=== PATIENT | female | born 1940 | race Hispanic/Latino ===

== ENCOUNTER 2022-05-30 19:49 | Inpatient (IN) | payer OTHER, MEDICARE ==
[~2022-05-30] VITALS: Ht 152.4 cm; Wt 51.7 kg
[2022-05-30] MEDS ORDERED: 0.9%NACL 1000ML 1,000 ML IV ONE (20:30)
[2022-05-30 20:31] LABS: BILIRUBIN,URINE NEGATIVE (NEGATIVE); GLUCOSE, URINE (UA) >=1000 mg/dL (NEGATIVE); KETONES,URINE NEGATIVE (NEGATIVE); LEUKOCYTE ESTERASE ,URINE SMALL (NEGATIVE); NITRATE,URINE NEGATIVE (NEGATIVE); OCCULT BLOOD,URINE NEGATIVE (NEGATIVE); PROTEIN,URINE NEGATIVE (NEGATIVE); UROBILINOGEN,URINE 0.2 mg/dL (0.2-1.0)
[2022-05-30 20:37] LABS: HEMATOCRIT 37.5 % (36-48); LYMPHOCYTES % (AUTO) 11.9 % (21.0-51.0); MEAN CORPUSCULAR HEMOGLOBIN 32.3 pg (27.0-33.0); MEAN CORPUSCULAR HGB CONC 34.7 g/dL (32.0-36.0); MEAN CORPUSCULAR VOLUME 93.3 fL (79-99); MONOCYTES % (AUTO) 7.1 % (3.0-13.0); NEUTROPHILS % (AUTO) 80.3 % (40.0-77.0); PLATELET COUNT (AUTO) 181 K/uL (130-400); RED BLOOD CELL COUNT(AUTO) 4.02 MIL/uL (4.00-5.50); RED CELL DISTRIBUTION WIDTH 12.6 % (11.0-15.5); WHITE BLOOD COUNT (AUTO) 13.3 K/uL (4.8-10.8)
[2022-05-30 20:39] LABS: APPEARANCE,URINE CLEAR (CLEAR)
[2022-05-30 20:40] LABS: COLOR,URINE YELLOW (YELLOW)
[2022-05-30 20:42] LABS: ABG BASE EXCESS -4.7 mmol/L (-2.0-3.0); ABG HCO3 19.5 mmol/L (21.0-28.0); ABG OXYGEN SATURATION 94.2 % (95.0-99.0); ABG PCO2 33 mmHg (32-45)
[2022-05-30 20:44] LABS: CREATININE 1.8 mg/dL (0.5-1.5); POTASSIUM 4.8 mmol/L (3.5-5.1)
[2022-05-30 20:49] LABS: ALBUMIN 3.1 g/dL (3.5-5.0); TOTAL PROTEIN, SERUM 6.4 g/dL (6.0-8.3)
[2022-05-30 20:53] LABS: BACTERIA,URINE Few /HPF (None Seen); RBC,URINE None Seen /HPF (0-1); SQUAMOUS EPITHELIAL CELL,UR None Seen /HPF (0-2)
[2022-05-30] MEDS ORDERED: ACETAMINOPHEN 325 MG TAB PO PRN (21:00)
[2022-05-30] MEDS: INSULIN HUMULIN R 100 UNIT/ML 3ML SQ SCH (21:00)
[2022-05-30] MEDS ORDERED: ONDANSETRON 4MG INJ IVP PRN (21:00)
[2022-05-30] MEDS: 0.9%NACL 1000ML 1,000 ML IV SCH (21:00)
[2022-05-31] VITALS (7 sets, daily range): BP systolic 99–126; BP diastolic 46–60
[2022-05-31] MEDS ORDERED: TERB250T89 PO (02:27)
[2022-05-31] MEDS ORDERED: DAPA1TAB3 PO (02:27)
[2022-05-31] MEDS ORDERED: LISI40TA9 PO (02:27)
[2022-05-31] MEDS ORDERED: METO-391 PO (02:27)
[2022-05-31] MEDS ORDERED: ESCI-8 PO (02:27)
[2022-05-31] MEDS ORDERED: vit b12 PO (02:29)
[2022-05-31] MEDS ORDERED: SEMA3TAB4 PO (02:30)
[2022-05-31] MEDS: INSULIN HUMULIN R 100 UNIT/ML 3ML SQ SCH ×4 (05:45→20:50)
[2022-05-31 06:59] LABS: BASOPHILS % (AUTO) 0.1 % (0.0-5.0); HEMATOCRIT 33.7 % (36-48); LYMPHOCYTES % (AUTO) 17.1 % (21.0-51.0); MEAN CORPUSCULAR HEMOGLOBIN 32.5 pg (27.0-33.0); MEAN CORPUSCULAR HGB CONC 33.8 g/dL (32.0-36.0); MONOCYTES % (AUTO) 7.5 % (3.0-13.0); NEUTROPHILS % (AUTO) 74.7 % (40.0-77.0); PLATELET COUNT (AUTO) 149 K/uL (130-400); RED BLOOD CELL COUNT(AUTO) 3.51 MIL/uL (4.00-5.50); WHITE BLOOD COUNT (AUTO) 10.4 K/uL (4.8-10.8)
[2022-05-31 07:07] LABS: HEMOGLOBIN A1C 9.7 % (4.0-6.0)
[2022-05-31 07:08] LABS: CREATININE 1.4 mg/dL (0.5-1.5); MAGNESIUM 2.4 mg/dL (1.80-2.40); POTASSIUM 4.3 mmol/L (3.5-5.1)
[2022-05-31] MEDS: ENOXAPARIN SODIUM 30 MG/0.3 ML SQ SCH (09:46)
[2022-05-31] MEDS: PHARMACY COMMUNICATION MISC SCH ×5 (14:30→18:30)
[2022-05-31] MEDS ORDERED: BISACODYL 5 MG TABLET.DR PO PRN (15:30)
[2022-05-31] MEDS: 0.9%NACL 1000ML 1,000 ML IV SCH ×2 (20:52→23:40)
[2022-06-01 04:58] VITALS: BP 123/75
[2022-06-01] MEDS: INSULIN HUMULIN R 100 UNIT/ML 3ML SQ SCH ×4 (05:26→22:21)
[2022-06-01] MEDS ORDERED: GLUCAGON 1MG KIT 1 MG ML IM PRN (05:30)
[2022-06-01] MEDS ORDERED: DEXTROSE 50%-WATER 50 ML DISP.SYRIN IV PRN (05:30)
[2022-06-01 07:30] VITALS: BP 108/50
[2022-06-01] MEDS: DAPAGLIFLOZIN PO SCH (08:57)
[2022-06-01] MEDS: METFORMIN PO SCH (08:57)
[2022-06-01] MEDS: CYANOCOBALAMIN (VITAMIN B-12) 1,000 MCG TABLET PO SCH (08:59)
[2022-06-01] MEDS: ENOXAPARIN SODIUM 30 MG/0.3 ML SQ SCH (08:59)
[2022-06-01] MEDS ORDERED: Terbinafine HCl 250 MG PO SCH (09:00)
[2022-06-01] MEDS: METOPROLOL SUCCINATE 50 MG TAB.SR.24H PO SCH (09:00)
[2022-06-01] MEDS: LISINOPRIL 40 MG TABLET PO SCH (09:00)
[2022-06-01 11:00] VITALS: BP 110/51
[2022-06-01 16:00] VITALS: BP 106/50
[2022-06-01 19:20] VITALS: BP 101/49
[2022-06-02] VITALS: BP 110/47
[2022-06-02 05:19] VITALS: BP 105/53
[2022-06-02 05:33] LABS: HEMATOCRIT 35.5 % (36-48); MEAN CORPUSCULAR HGB CONC 33.5 g/dL (32.0-36.0); MEAN CORPUSCULAR VOLUME 95.4 fL (79-99); RED BLOOD CELL COUNT(AUTO) 3.72 MIL/uL (4.00-5.50); RED CELL DISTRIBUTION WIDTH 12.7 % (11.0-15.5); WHITE BLOOD COUNT (AUTO) 8.8 K/uL (4.8-10.8)
[2022-06-02 05:37] LABS: CREATININE 0.9 mg/dL (0.5-1.5); MAGNESIUM 2.1 mg/dL (1.80-2.40)
[2022-06-02] MEDS: INSULIN HUMULIN R 100 UNIT/ML 3ML SQ SCH ×2 (06:19→11:30)
[2022-06-02 07:02] VITALS: BP 106/50
[2022-06-02] MEDS: METOPROLOL SUCCINATE 50 MG TAB.SR.24H PO SCH (08:37)
[2022-06-02] MEDS: ENOXAPARIN SODIUM 30 MG/0.3 ML SQ SCH (08:40)
[2022-06-02] MEDS: CYANOCOBALAMIN (VITAMIN B-12) 1,000 MCG TABLET PO SCH (08:42)
[2022-06-02] MEDS: DAPAGLIFLOZIN PO SCH (09:00)
[2022-06-02] MEDS: LISINOPRIL 40 MG TABLET PO SCH (09:00)
[2022-06-02] MEDS: METFORMIN PO SCH (09:00)
[2022-06-02 12:22] VITALS: BP 119/52
[2022-06-02 16:02] VITALS: BP 123/52
== END 2022-06-02 19:20 | disposition home or self-care (01) | DRG 637 ==
LOC: EDH 19:49 → EDHIP 20:58 → 4AH 05-31 01:47 → 3CH 06-01 17:49
PROVIDERS: ADMIT Internal Medicine Infectious Disease; ATTEND Internal Medicine Infectious Disease
DX: E11.65 Type 2 diabetes mellitus with hyperglycemia (principal); U07.1 COVID-19; E87.1 Hypo-osmolality and hyponatremia; N17.9 Acute kidney failure, unspecified; D72.829 Elevated white blood cell count, unspecified; E78.00 Pure hypercholesterolemia, unspecified; E86.0 Dehydration; F32.A Depression, unspecified; I10 Essential (primary) hypertension; Z83.3 Family history of diabetes mellitus
CPT/HCPCS: 36415; 36600; 71045; 80048; 80053; 81001; 82010; 82435; 82803; 82947; 82948; 83036; 83605; 83735; 84132; 84295; 84484; 85018; 85025; 85027; 87088; 87635; 87804; 93005; 99291; C9803; G0378; J1650; J1815; J7030; J7070

== ENCOUNTER 2022-10-14 20:50 | Emergency (ER) | payer OTHER, MEDICARE ==
[~2022-10-14] VITALS: Ht 142.2 cm; Wt 86.6 kg
[~2022-10-14 20:50] MED LIST: DAPA1TAB3 PO; ESCI-8 PO; LISI40TA9 PO; METO-391 PO; SEMA3TAB4 PO; TERB250T89 PO; vit b12 PO
[2022-10-14] MEDS ORDERED: ACET-66 PO (22:21)
[2022-10-14] MEDS ORDERED: TRAM50TA4 PO (22:21)
[2022-10-14] MEDS ORDERED: TRAMADOL HCL 50 MG TABLET PO ONE (22:30)
[2022-10-14 23:14] VITALS: BP 153/57
== END 2022-10-14 23:37 | disposition home or self-care (01) ==
LOC: EDH 20:50
DX: S62.522A Displaced fracture of distal phalanx of left thumb, initial encounter for closed fracture (principal); S52.502A Unspecified fracture of the lower end of left radius, initial encounter for closed fracture; E11.9 Type 2 diabetes mellitus without complications; E78.00 Pure hypercholesterolemia, unspecified; Z90.49 Acquired absence of other specified parts of digestive tract; Z79.899 Other long term (current) drug therapy; Z79.84 Long term (current) use of oral hypoglycemic drugs; W01.0XXA Fall on same level from slipping, tripping and stumbling without subsequent striking against object, initial encounter; Y93.89 Activity, other specified; Y92.89 Other specified places as the place of occurrence of the external cause; Y99.8 Other external cause status
CPT/HCPCS: 29125; 73110; 73140